=== PATIENT | male | born 1980 | race Caucasian/White ===

== ENCOUNTER 2017-07-31 12:51 | Emergency (ER) | payer SELFPAY ==
[2017-07-31] MEDS ORDERED: MORPHINE 10 MG/ML SYRINGE ONE (13:03)
[2017-07-31] MEDS ORDERED: Lidocaine 1% 20 ML MDV ONE (13:03)
[2017-07-31] MEDS ORDERED: Adacel (T-DAP) 0.5 ML VIAL ONE (13:05)
[2017-07-31] MEDS ORDERED: CEFAZOLIN 1 GM VIAL ONE (13:05)
[2017-07-31] MEDS ORDERED: Sterile Water 10 ML ONE (13:06)
== END 2017-07-31 13:35 | disposition home or self-care (01) ==
LOC: MADERS 12:51
DX: L03.011 Cellulitis of right finger (principal); I25.2 Old myocardial infarction; I48.91 Unspecified atrial fibrillation; E78.5 Hyperlipidemia, unspecified; I10 Essential (primary) hypertension; F31.9 Bipolar disorder, unspecified; F90.9 Attention-deficit hyperactivity disorder, unspecified type; F17.210 Nicotine dependence, cigarettes, uncomplicated; Z23 Encounter for immunization
CPT/HCPCS: 26010; 90471; 90715; 96372; A4216; J0690; J2001; J2270